=== PATIENT | female | born 1995 ===

== ENCOUNTER 2018-10-31 10:47 | Outpatient (CLI) | payer OTHER ==
[2018-10-31] MEDS ORDERED: LACTATED RINGERS 500 ML IV ONE (11:00)
[2018-10-31 11:17] VITALS: BP 109/66
[2018-10-31 13:10] LABS: Bacteria,Urine 2+ /HPF (Negative); Bilirubin,Urine NEG (Negative); Blood,Urine NEG (Negative); Color,Urine Yellow (Yellow); Mucus,Urine 3+ /HPF; Urobilinogen,Urine < 2.0 mg/dL (<2.0)
--- NOTE | 2018-10-31 15:06 | Ultrasound Report ---
PROCEDURE: US OB LIMITED TECHNIQUE: Limited obstetrical ultrasound performed for placental evaluation. HISTORY: rule out abruption COMPARISON: None FINDINGS: There is a single live uterine of approximately 26 weeks 4 days according to history. cardiac activity measured at 162 bpm. position is breech with head on maternal right. Placenta is fundal. There is no retroplacental hemorrhage or collection. No sonographic findings to indicate placental ab ruption. There is no placenta previa. IMPRESSION: Single live intrauterine gestation. No findings of placental abruption. This document is electronically signed by Lorenza Claire MD., October 31 2018 03:04:14 PM ET
== END 2018-10-31 15:49 | disposition home or self-care (01) ==
LOC: TRG 10:47
PROVIDERS: ATTEND Obstetrics & Gynecology
DX: Z34.82 Encounter for supervision of other normal pregnancy, second trimester (principal); Z3A.26 26 weeks gestation of pregnancy
CPT/HCPCS: 76815; 81001

== ENCOUNTER 2019-01-22 15:35 | Outpatient (CLI) | payer OTHER ==
[2019-01-22] MEDS ORDERED: LACTATED RINGERS 1,000 ML ONE (16:46)
--- NOTE | 2019-01-22 18:25 | Ultrasound Report ---
OB ultrasound limited History: Fell on abdomen; check placenta Comparison: None Procedure: Real time ultrasound was utilized to evaluate. Findings: A single intrauterine is identified in a cephalic presentation. Placenta is anter ior/right lateral with a grade of 1. No previa. No abruption. . Amnionic fluid volume is normal with an index of 10.1 cm. heart rate is 142 bpm. Impression: Single living IUP in a cephalic presentation. Placenta is unremarkable. Signer Name: Delicia Mayo MD Signed: 01/22/2019 6:21 PM Workstation Name: [id number]
--- NOTE | 2019-01-22 18:26 | Ultrasound Report ---
FINDINGS: respiration, tone and motion are well visualized and normal. Amniotic fluid volume is normal. Biophysical profile score is 8/8. heart rate is 142 beats per minute. IMPRESSION: The biophysical profile score is 8/8. Signer Name: Delicia Mayo MD Signed: 01/22/2019 6:21 PM Workstation Name: [id number]
[2019-01-22] MEDS ORDERED: TYLENOL PO PRN (22:53)
--- NOTE | 2019-01-22 22:58 | History and Physical Report ---
History of Present Illness Date of examination: 01/22/19 Date of admission: 01/22/19 Chief complaint: Fell in yard at home History of present illness: 23 year old at 38 weeks, 3 days gestation fell in yard at home around 3 PM today. Patient states she fell on her right side but did not land hard as she tried to break her fall with her arms. Patient denies any limitation of movement or any bruising. Patient states she did not hit her head. Patient denies vaginal bleeding or spotting. She reports irregular mild contractions. She denies leaking of fluid. Patient reports active movement. Patient receives care at [facility] and states she has had a normal . No records are available. Patient states her due date is 02/02/19. 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 denies: smoking, alcohol abuse, prescription drug abuse, IV drug use - Obstetrical History Expected Date of Delivery: 02/02/19 Actual Gestation: 38 Week(s) 3 Day(s) : 1 Para: 0 Hx # Term Pregnancies: 0 Number of Pregnancies: 0 Spontaneous Abortions: 0 Induced : 0 Number of Living Children: 0 Medications and Allergies Allergies Allergy/AdvReac Type Severity Reaction Status Date / Time No Known Allergies Allergy Unverified 10/31/18 11:00 Review of Systems All systems: negative (fell in yard at home) - Vital Signs Vital signs: Vital Signs Pulse BP 97 H 121/81 01/22/19 16:03 01/22/19 16:03 Temp Pulse Resp BP Pulse Ox 77 121/59 01/22/19 19:33 01/22/19 19:33 BPP 8/8. No signs of placental abruption per ultrasound. ANTON 10.1. KB test negative. - Physical Exam Abdomen: Positive: normal appearance, soft. Negative: distention, tenderness, guarding, rigidity Genitourinary (Female): Positive: normal external genitalia, normal perenium. Negative: perineal/vulvar lesions Vagina: Positive: normal moisture (no bleeding noted; no leaking of fluid) Uterus: Positive: enlarged. Negative: tender Anus/Rectum: Positive: normal perianal skin Extremities: Positive: normal. Negative: tenderness, edema - Obstetrical FHR: category 2 (Normal FHR baseline with moderate variability and accelerations; several brief variable FHR decelerations noted with rapid return to baseline. ) Uterine Contraction Monitor Mode: External Cervical Dilatation: 1 Cervical Effacement Percentage: 50 station: -3 Uterine Contraction Pattern: Irregular Uterine Contraction Intensity: Mild Results All other labs normal. Assessment and Plan A: at 38 weeks, 3 days gestation. S/P fall in yard at home. Normal BPP and ANTON. No signs of placental abruption per US. Variable FHR deceleration. P: Admit for 23 hour observation. Continuous EFM.
[2019-01-22] MEDS ORDERED: LACTATED RINGERS 1,000 ML IV SCH (23:00)
[2019-01-23 07:31] VITALS: BP 102/71
--- NOTE | 2019-01-23 08:44 | Progress Note ---
Assessment and Plan - Patient Problems (1) 38 weeks gestation of Current Visit: Yes Status: Acute (2) Status post fall Current Visit: Yes Status: Acute Plan to address problem: Reports +FMs and denies abdominal pain or tenderness BPP 02/09. No placenta abruption or placenta previa on US. Neg KB test Discharge to home today Encouraged daily FKCs Follow up at [facility] in 2 days Subjective - Subjective Date of service: 01/23/19 Principal diagnosis: IUP @ 38 weeks; s/p Fall Interval history: see H&P Patient reports: movement normal, no loss of fluid, no vaginal bleeding, no contractions Objective - Vital Signs Vital Signs: Vital Signs - 12hr 01/23/19 01/23/19 01:34 07:30 Temperature 98.9 F Pulse Rate 100 H 86 Respiratory 16 Rate Blood Pressure 101/58 102/71 - Exam FHR: auscultation normal, category 1 FHR comments: baseline 140, moderate variability, 15x15 accels, no decels Uterine Contraction Pattern: Irregular - Labs Labs: Laboratory Results - last 24 hr 01/22/19 16:48 KB % Cells Negative
--- NOTE | 2019-01-23 08:48 | Discharge Summary ---
Providers - Providers Date of Admission: 01/22/19 Date of discharge: 01/23/19 Attending physician: DIANA MIXON MD Primary care physician: DIANA MIXON MD Hospitalization Reason for admission: IUP at term, other (s/p fall) Procedure: other (NST/BPP/OBUS) Discharge diagnosis: other (IUP @ 38 weeks 4 days; undelivered) Condition at discharge: Stable Disposition: DC-01 TO HOME OR SELFCARE - Discharge Diagnoses (1) 38 weeks gestation of Status: Acute (2) Status post fall Status: Resolved Plan - Provider Discharge Summary Activity: routine Diet: routine Instructions: other (Encouraged daily FKCs) Additional instructions: [] Smoking cessation referral if applicable(refer to patient education folder for contact #) [] Refer to [facility] Booklet Call your doctor immediately for: * Fever > 100.5 * Heavy vaginal bleeding ( >1 pad per hour) * Severe persistent headache * Shortness of breath * Reddened, hot, painful area to leg or breast * Decreased or absent movement - Follow up plan Follow up: DIANA MIXON MD [Primary Care Provider] - 01/25/19 (Follow up at [facility] in 2 days for routine OB visit) Forms: C Discharge Summary
== END 2019-01-23 09:18 | disposition home or self-care (01) ==
LOC: TRG 15:35 → LD 23:26 → TRG 01-23 09:18
PROVIDERS: ATTEND Obstetrics & Gynecology
DX: O26.893 Other specified pregnancy related conditions, third trimester (principal); R10.9 Unspecified abdominal pain; O62.9 Abnormality of forces of labor, unspecified; Z3A.38 38 weeks gestation of pregnancy; W18.30XA Fall on same level, unspecified, initial encounter; Y93.89 Activity, other specified; Y99.8 Other external cause status; Y92.096 Garden or yard of other non-institutional residence as the place of occurrence of the external cause
CPT/HCPCS: 59025; 76815; 76819; 85460; J7120; 96360

== ENCOUNTER 2019-02-01 00:15 | Outpatient (CLI) | payer SELFPAY ==
[2019-02-01] MEDS ORDERED: LACTATED RINGERS 1,000 ML IV ONE (04:00)
[2019-02-01] MEDS ORDERED: LACTATED RINGERS 1,000 ML ONE (04:06)
[2019-02-01] MEDS ORDERED: PERCOCET 5/325 PO NR (05:45)
[2019-02-01 09:10] VITALS: BP 116/76
== END 2019-02-01 09:15 | disposition home or self-care (01) ==
LOC: TRG 00:15
PROVIDERS: ATTEND Obstetrics & Gynecology
DX: O62.9 Abnormality of forces of labor, unspecified (principal); Z3A.39 39 weeks gestation of pregnancy
CPT/HCPCS: 99212; G0463; J7120

== ENCOUNTER 2019-02-02 01:08 | Inpatient (IN) | payer OTHER ==
[2019-02-02] MEDS ORDERED: BRETHINE SUB-Q PRN (01:43)
[2019-02-02] MEDS ORDERED: BRETHINE IVP PRN (01:43)
[2019-02-02] MEDS ORDERED: MINERAL OIL PO PRN (01:43)
[2019-02-02] MEDS ORDERED: STADOL IV PRN (01:43)
[2019-02-02] MEDS ORDERED: XYLOCAINE 2% INFILTRATI ONE (01:43)
[2019-02-02] MEDS ORDERED: LACTATED RINGERS 1,000 ML IV SCH (02:00)
[2019-02-02] MEDS ORDERED: PITOCin/NS 30 UNIT/500ML 30 UNITS/500 ML BAG IV SCH ×3 (02:00→04:00)
[2019-02-02] MEDS ORDERED: PITOCin/NS 20 UNIT/1000ML DRIP 20 UNITS/1,000 ML BAG IV SCH ×2 (02:00→04:00)
[2019-02-02 03:11] LABS: Hemoglobin 12.8 gm/dl (10.1-14.3); Mean Corpuscular HGB Conc 33 % (30-34); Mean Corpuscular Volume 84 fl (79-97); Platelet Count 183 K/mm3 (140-440); Red Blood Count 4.65 M/mm3 (3.65-5.03); Red Cell Distribution Width 14.8 % (13.2-15.2)
[2019-02-02] MEDS ORDERED: NARCAN 0.4 MG/1 ML IV PRN (03:25)
--- NOTE | 2019-02-02 03:41 | History and Physical Report ---
History of Present Illness Date of examination: 02/02/19 Date of admission: 02/02/19 01:40 Chief complaint: My water broke at 2330 on 02/01/2019. History of present illness: Early entry to care at [facility], course was uncomplicated. Past History Past Medical History: no pertinent history Past Surgical History: no surgical history Family/Genetic History: diabetes (mother) Social history: no significant social history - Obstetrical History Expected Date of Delivery: 02/02/19 Actual Gestation: 40 Week(s) 0 Day(s) : 1 Medications and Allergies Allergies Allergy/AdvReac Type Severity Reaction Status Date / Time No Known Allergies Allergy Unverified 10/31/18 11:00 Active Meds: Active Medications Butorphanol Tartrate (Stadol) 2 mg IV Q2H PRN PRN Reason: Pain , Severe (7-10) Last Admin: 02/02/19 02:42 Dose: 2 mg Documented by: Ephedrine Sulfate (Ephedrine Sulfate) 10 mg IV Q2M PRN PRN Reason: Hypotension Oxytocin/Sodium Chloride (Pitocin/Ns 30 Unit/500ml) 30 units in 500 mls @ 2 mls/hr IV TITR RADHA; Protocol Lactated Ringer's (Lactated Ringers) 1,000 mls @ 125 mls/hr IV DIRECT RADHA Oxytocin/Sodium Chloride (Pitocin/Ns 20 Unit/1000ml Drip) 20 units in 1,000 mls @ 125 mls/hr IV DIRECT RADHA Oxytocin/Sodium Chloride (Pitocin/Ns 30 Unit/500ml) 30 units in 500 mls @ 1 mls/hr IV TITR RADHA; Protocol Mineral Oil (Mineral Oil) 30 ml PO QHS PRN PRN Reason: Constipation Naloxone HCl (Narcan 0.4 Mg/1 Ml) 0.1 mg IV Q2MIN PRN PRN Reason: Res Rate </= 8 or 02 SAT < 92% Terbutaline Sulfate (Brethine) 0.25 mg SUB-Q ONCE PRN PRN Reason: Hyperstimulation/Hypertonicity Terbutaline Sulfate (Brethine) 0.25 mg IVP ONCE PRN PRN Reason: Hyperstimulation/Hypertonicity Review of Systems All systems: negative - Physical Exam Breasts: Positive: normal Cardiovascular: Regular rate Lungs: Positive: Clear to auscultation, Normal air movement Abdomen: Positive: normal appearance, soft, normal bowel sounds Genitourinary (Female): Positive: normal external genitalia, normal perenium Uterus: Positive: enlarged Extremities: Positive: normal - Obstetrical FHR: category 1 Uterine Contraction Monitor Mode: External Cervical Dilatation: 6 (leaking a small amount of clear fluid) Cervical Effacement Percentage: 100 station: 0 Uterine Contraction Pattern: Regular Uterine Tone Measurement Phase: Resting Uterine Contraction Intensity: Moderate Results Result Diagrams: 02/02/19 02:00 Abnormal lab results 02/02/19 Range/Units 02:00 WBC 16.5 H (4.5-11.0) K/mm3 All other labs normal. Assessment and Plan A: IUP @ 40 Weeks Category I Tracing SROM GBS Negative P: Admit to L&D per Routine Orders Pitocin Augmentation
[2019-02-02] MEDS ORDERED: MILK OF MAGNESIA PO PRN (05:13)
[2019-02-02] MEDS ORDERED: LANSINOH TP PRN (05:13)
[2019-02-02] MEDS ORDERED: BENADRYL PO PRN (05:13)
--- NOTE | 2019-02-02 05:21 | Procedure Note ---
OB Delivery Note - Delivery Date of Delivery: 02/02/19 (0447) Surgeon: YUE SKAGGS Estimated blood loss: 200cc - Vaginal Delivery presentation: vertex Delivery position: OA Intrapartum events: none Delivery induction: none Delivery augmentation: pitocin Delivery monitor: external FHT, external uterine Route of delivery: Delivery placenta: spontaneous Delivery cord: 3 umbilical vessels Episiotomy: none Delivery laceration: 2nd degree Delivery repair: vicryl Anesthesia: local Delivery comments: of a live 6'3 female over a 2nd degree perineal laceration under IV pain control with Apgars of 9 and 9 at 0447 on 02/02/2019. directly to maternal abd/chest, skin to skin contact. Spontaneous delivery of placenta complete and intact with [place] side presenting at 0453. Fundus is firm and midline located 4 below the U; Lochia is scant. Perineal laceration repaired with 2-[address]-1. Delayed cord clamping and cutting; Cord cut by the Father of Baby. Cord blood collected. Placenta discarded. - A at 1 minute: 9 at 5 minutes: 9 Infant Gender: Female (6'3)
[2019-02-02] MEDS ORDERED: SODIUM CHLORIDE FLUSH SYRINGE 10 ML IV NR (06:00)
[2019-02-02] MEDS: PRENATAL VITAMIN PO SCH (11:00)
[2019-02-02] MEDS: IBUPROFEN PO SCH ×2 (12:43→20:56)
[2019-02-02 16:32] LABS: Hematocrit 32.9 % (30.3-42.9); Hemoglobin 10.9 gm/dl (10.1-14.3)
[2019-02-02] MEDS: MILK OF MAGNESIA PO PRN (22:23)
[2019-02-02] MEDS: NORCO 5/325 PO PRN (22:23)
[2019-02-03] MEDS: PRENATAL VITAMIN PO SCH (09:51)
--- NOTE | 2019-02-03 10:29 | Progress Note ---
Assessment and Plan A: PPD#1 s/p Breast/bottle feeding under bili-lights at bedside Stable P: Routine PP orders Encouraged ambulation in room Anticipate discharge home in 24-48 hrs Subjective - Subjective Date of service: 02/03/19 Principal diagnosis: S/P 8/1 @ 0447 Patient reports: appetite normal, voiding normally, pain well controlled, flatus, ambulating normally, no bowel movement [place]: doing well (Infant under bili-lights at bedside) Objective - Vital Signs Latest vital signs: Vital Signs Temp Pulse Resp BP BP Pulse Ox 02/03/19 08:50 97.9 F 91 H 20 105/64 02/03/19 04:36 97.8 F 92 H 17 103/68 98 02/02/19 23:37 98.5 F 82 17 114/76 98 02/02/19 22:23 18 02/02/19 20:49 99.3 F 93 H 16 110/64 98 02/02/19 16:21 98.5 F 88 18 99/62 98 02/02/19 12:43 18 02/02/19 12:38 98.5 F 104 H 18 99/66 98 Intake and Output 02/02/19 02/03/19 02/03/19 23:59 07:59 15:59 Intake Total 600 600 Balance 600 600 Intake: Oral 240 600 Intake, Free Water 360 Other: Total, Intake Amount 240 600 # Voids Void 2 # Bowel Movements 1 - Exam Breasts: Present: normal, Cardiovascular: Present: Regular rate, Normal S1, Normal S2, No murmurs Lungs: Present: Clear to auscultation, Normal air movement Abdomen: Present: normal appearance, normal bowel sounds. Absent: distention Vulva: both: laceration/episiotomy (2nd degree perineal lac; well approximated) Uterus: Present: firm Extremities: Present: normal Deep Tendon Reflex Grade: Normal +2
[2019-02-03] MEDS: IBUPROFEN PO SCH ×2 (14:50→20:26)
[2019-02-04] MEDS: MILK OF MAGNESIA PO PRN (06:36)
[2019-02-04] MEDS: IBUPROFEN PO SCH ×2 (06:37→17:57)
[2019-02-04] MEDS: NORCO 5/325 PO PRN ×2 (06:39→17:58)
[2019-02-04 10:20] VITALS: BP 118/63
[2019-02-04] MEDS: PRENATAL VITAMIN PO SCH (10:26)
--- NOTE | 2019-02-04 10:51 | Discharge Summary ---
Providers - Providers Date of Admission: 02/02/19 01:40 Date of discharge: 02/04/19 (1500) Attending physician: DIANA MIXON MD Primary care physician: DIANA MIXON MD Hospitalization Reason for admission: active labor Delivery: Episiotomy: none Laceration: 2nd degree (intact, healing as expected, no signs of infection) Other procedures: none complications: none Discharge diagnosis: IUP at term delivered baby: female Hospital course: See admission H & P; OB delivery summary and PP progress notes Condition at discharge: Good Disposition: DC-01 TO HOME OR SELFCARE - Discharge Diagnoses (1) (normal spontaneous vaginal delivery) Status: Acute (2) Anemia Status: Acute Qualifiers: Anemia type: other cause Other causes of anemia: acute posthemorrhagic Qualified Code(s): D62 - Acute posthemorrhagic anemia Plan - Provider Discharge Summary Activity: routine, no sex for 6 weeks, no heavy lifting 4 weeks, no strenuous exercise Diet: other (Increase iron rich foods into diet) Instructions: routine Additional instructions: [] Smoking cessation referral if applicable(refer to patient education folder for contact #) [] Refer to [facility] Booklet Call your doctor immediately for: * Fever > 100.5 * Heavy vaginal bleeding ( >1 pad per hour) * Severe persistent headache * Shortness of breath * Reddened, hot, painful area to leg or breast * Drainage or odor from incision. * Keep incision clean and dry at all times and follow doctor's instructions regarding bathing/showering * Daily oral iron supplementation once daily - Follow up plan Follow up: DIANA MIXON MD [Primary Care Provider] - 6 Weeks
[2019-02-04] MEDS ORDERED: DEPO-PROVERA (CONTRACEPTION) IM ONE (11:19)
== END 2019-02-04 15:00 | disposition home or self-care (01) | DRG 806 ==
LOC: TRG 01:08 → LD 01:40 → TRG 01:40 → OB 07:57
PROVIDERS: ADMIT Obstetrics & Gynecology; ATTEND Obstetrics & Gynecology
PROC: 0KQM0ZZ Repair Perineum Muscle, Open Approach (ICD-10-PCS; principal; 2019-02-02)
PROC: 10E0XZZ Delivery of Products of Conception, External Approach (ICD-10-PCS; 2019-02-02)
DX: O70.1 Second degree perineal laceration during delivery (principal); D62 Acute posthemorrhagic anemia; Z37.0 Single live birth; Z83.3 Family history of diabetes mellitus; Z3A.40 40 weeks gestation of pregnancy; O90.81 Anemia of the puerperium
CPT/HCPCS: 36415; 85014; 85018; 85027; 86592; G0378; A6250; J0595; J1050; J2590; J7120